=== PATIENT | male | born 1950 | race Caucasian/White ===

== ENCOUNTER 2019-07-13 12:20 | Emergency (ER) | payer OTHER, MEDICARE ==
[2019-07-13 13:06] LABS: #Basophils 0.1 thou/uL (0.0-0.2); #Eosinphils 0.1 thou/uL (0.0-0.7); #Lymphocytes 1.9 thou/uL (1.20-3.40); #Monocytes 0.8 thou/uL (0.11-0.59); #Neutrophils 7.5 thou/uL (1.40-6.50); %Basophils 0.6 % (0.0-1.0); %Eosinophils 0.6 % (0.0-10.0); %Lymphocytes 18.2 % (21.0-51.0); %Monocytes 7.3 % (0.0-10.0); %Neutrophils 73.3 % (42.0-75.0); Mean Corpuscular HGB CONC 33.3 g/dL (32.0-36.0); Mean Corpuscular Hemoglobin 32.3 pg (27.0-31.0); Mean Corpuscular Volume 96.9 fL (78.0-98.0); Mean Platelet Volume 6.6 fL (7.4-10.4); Platelet Count 228 thou/uL (130-400); RBC Distribution Width 12.4 % (11.5-14.5); Red Blood Cell (RBC) Count 4.33 mill/uL (4.70-6.10); White Blood Cell (WBC) Count 10.3 thou/uL (4.8-10.8)
[2019-07-13 13:28] LABS: ALT (SGPT) 11 U/L (8-55); AST (SGOT) 13 U/L (5-34); Albumin 4.1 g/dL (3.4-4.8); Alkaline Phosphatase 76 U/L (40-110); Anion Gap 10 mmol/L (10-20); BUN (Urea Nitrogen) 10 mg/dL (8.4-25.7); Bilirubin, Total 0.3 mg/dL (0.2-1.2); Calc. Creatinine Clearance 0 mL/min (70-130); Calcium 8.5 mg/dL (7.8-10.44); Carbon Dioxide 26 mmol/L (23-31); Chloride 100 mmol/L (98-107); Estimated GFR-MDRD 89; Globulin 2.6 g/dL (2.4-3.5); Glucose 106 mg/dL (80-115); Protein, Total 6.7 g/dL (5.8-8.1); Sodium 132 mmol/L (136-145)
--- NOTE | 2019-07-13 15:20 | CT ---
EXAM: CT ABDOMEN AND PELVIS HISTORY: Abdominal pain x1 month. 30 pound weight loss COMPARISON: None. Procedure: Multiple contiguous axial images were obtained and a CT of the abdomen and pelvis with IV contrast. C oronal reformats were performed. FINDINGS: Lower Chest: Small right-sided pleural effusion. Adjacent interstitial opacities and tree-in-bud opac ities may represent atypical infection superimposed upon chronic change. Linear opacities in the left lung base are noted. 1.7 cm bleb. Trace left-sided pleural effusion. Vessels: Normal caliber aorta. No periaortic fat stranding. Atherosclerosis is identified with short segment mild narrowing. Heart: Upper normal heart size. No significant pericardial fluid. Abdomen: Portal vein:Patent Gallbladder: No calcified gallstones. Normal caliber wall. Liver: within normal limits. Pancreas: within normal limits. Spleen: within normal limits. Adrenals: within normal limits. Kidneys: Symmetric enhancement. No obstructive uropathy. Peritoneum: No ascites or free air, no fluid collection. Bowel: Limited evaluation due to the lack of oral contrast administration. No evidence of high-grade small bowel obstruction. There is some fecalization of small bowel loops in a right inguinal hernia without associated diameter change. Significance is uncertain. A partial obstructive process cannot b e excluded. Ileocecal junction is unremarkable. Normal caliber appendix. Scattered fecal material in a nondistended, nondilated colon. Left inguinal hernia contains segment of descending colon and si gmoid colon without associated obstruction. Extensive diverticulosis throughout the left hemicolon. No diverticulitis. Mesentery and Retroperitoneum: No enlarged mesenteric or retroperitoneal lymph nodes. Abdominal Wall: within normal limits. Pelvis: Reproductive Organs: Reproductive organs are unremarkable. Pelvis: No mass, lymphadenopathy, free air or free fluid. Bilateral inguinal hernia containing mesent ashwin fat. There are segments of small bowel in the right inguinal region with fecalization. Partial obstructive process without associated dilatation is suspected. There is a segment of descending colo n and sigmoid colon in the left inguinal hernia without evidence of obstruction. Extensive diverticulosis. Bladder: within normal limits. Bones: within normal limits. IMPRESSION: 1. Bilateral inguinal hernias. Possible partial obstruction as suggested by fecalization of small bow el loops in the right inguinal hernia. Consider general surgical consultation. Left inguinal hernia contains colon, without evidence of obstruction. 2. Extensive diverticulosis. No evidence of diverticulitis. 3. Atypical infection the right lung base with adjacent small effusion.
[2019-07-13 16:56] LABS: Bilirubin Negative (Negative); Blood, Urine Negative (Negative); Clarity Clear (Clear); Glucose, Urine (Dipstick) Normal (Negative); Leukocyte Negative Leu/uL (Negative); Nitrite Negative (Negative); Protein, Urine (Dipstick) Negative (Neg-Trace); Urobilinogen Normal mg/dL (Less than 2)
== END 2019-07-13 17:35 | disposition home or self-care (01) ==
LOC: ERS 12:20
DX: K40.20 Bilateral inguinal hernia, without obstruction or gangrene, not specified as recurrent (principal); F17.210 Nicotine dependence, cigarettes, uncomplicated
CPT/HCPCS: 36415; 74177; 80053; 81003; 83690; 85025

== ENCOUNTER 2019-08-02 09:40 | Inpatient (IN) | payer OTHER, MEDICARE ==
[2019-08-02 10:08] LABS: #Basophils 0.1 thou/uL (0.0-0.2); #Eosinphils 0.2 thou/uL (0.0-0.7); #Lymphocytes 2.4 thou/uL (1.20-3.40); #Monocytes 0.8 thou/uL (0.11-0.59); #Neutrophils 7.7 thou/uL (1.40-6.50); %Basophils 0.8 % (0.0-1.0); %Eosinophils 1.7 % (0.0-10.0); %Lymphocytes 21.7 % (21.0-51.0); %Monocytes 7.1 % (0.0-10.0); %Neutrophils 68.7 % (42.0-75.0); Hemoglobin 13.6 g/dL (14.0-18.0); Mean Corpuscular HGB CONC 32.2 g/dL (32.0-36.0); Mean Corpuscular Hemoglobin 31.2 pg (27.0-31.0); Mean Corpuscular Volume 97.1 fL (78.0-98.0); Mean Platelet Volume 6.6 fL (7.4-10.4); Platelet Count 182 thou/uL (130-400); RBC Distribution Width 13.2 % (11.5-14.5); Red Blood Cell (RBC) Count 4.36 mill/uL (4.70-6.10); White Blood Cell (WBC) Count 11.2 thou/uL (4.8-10.8)
[2019-08-02] MEDS ORDERED: Nitroglycerin 2% Ointment 1 INCH/1 GM Packet ONE (10:11)
[2019-08-02] MEDS ORDERED: Aspirin Chewable 81 MG TAB ONE (10:11)
[2019-08-02 10:22] LABS: CKMB 4.8 ng/mL (0-6.6)
--- NOTE | 2019-08-02 10:27 | RAD ---
Exam: Chest one view HISTORY:Pain Comparison: 08/07/2011 FINDINGS: Lungs: Bibasilar densities are present with alveolar and interstitial prominence Cardiac silhouette:Enlarged Pulmonary vessels: Engorged Pleural Spaces: Bilateral pleural effusions are present, more pronounced on the right, mild in volume Pneumothorax: None Osseous abnormalities: None of acuity. IMPRESSION: Findings indicate bilateral pleural fluid with superimposed, adjacent edema, atelectasis and/or pneum onia. Correlate for evidence of decompensated CHF. Follow-up to resolution is recommended.
[2019-08-02] MEDS ORDERED: Iopamidol 370 76% 100 ML VIAL ONE (12:00)
[2019-08-02 12:32] LABS: ALT (SGPT) 35 U/L (8-55); AST (SGOT) 29 U/L (5-34); Alkaline Phosphatase 81 U/L (40-110); Anion Gap 15 mmol/L (10-20); BUN (Urea Nitrogen) 11 mg/dL (8.4-25.7); Bilirubin, Total 0.6 mg/dL (0.2-1.2); Calc. Creatinine Clearance 0 mL/min (70-130); Calcium 9.2 mg/dL (7.8-10.44); Carbon Dioxide 25 mmol/L (23-31); Chloride 104 mmol/L (98-107); Estimated GFR-MDRD 72; Globulin 2.5 g/dL (2.4-3.5); Glucose 145 mg/dL (80-115); Potassium 4.6 mmol/L (3.5-5.1); Protein, Total 6.5 g/dL (5.8-8.1); Sodium 139 mmol/L (136-145)
[2019-08-02] MEDS ORDERED: Enoxaparin Sodium 80 MG/0.8 ML SYRINGE ONE (12:43)
[2019-08-02] MEDS ORDERED: Furosemide 40 MG/4 ML VIAL ONE (12:43)
[2019-08-02 13:31] LABS: Troponin I 0.086 ng/mL (< 0.028)
[2019-08-02] MEDS ORDERED: Ondansetron ODT 4 MG TAB SL PRN (14:19)
[2019-08-02] MEDS ORDERED: Ondansetron PF 4 MG/2 ML Vial IVP PRN (14:19)
[2019-08-02] MEDS ORDERED: Acetaminophen 325 MG TAB PO PRN (16:53)
[2019-08-02 16:55] LABS: Troponin I 0.104 ng/mL (< 0.028)
[2019-08-02] MEDS: Nicotine 14 MG PATCH TD SCH (17:32)
--- NOTE | 2019-08-02 18:14 | HP ---
PRIMARY CARE PROVIDER: Dr. Rolly Andrew at [facility]. CHIEF COMPLAINT: Shortness of breath. HISTORY OF PRESENT ILLNESS: Mr. Bailey is a pleasant 68-year-old gentleman, who was seen at [facility] on August 02, 2019. He reports that he had myocardial infarction in 1995. He did not receive any intervention for that. He is a current smoker. He reports that he had decreased appetite several weeks ago. He had unintentional weight loss, going from 191 to 167 pounds over 2.5 weeks. He subsequently started gaining weight. He reports that over the last 1 week, he went from 167 pounds to 180 pounds. He also reports difficulty breathing over the last 6 days. He was seen at urgent care clinic. Chest x-ray reportedly showed enlarged heart and fluid in the lungs as well as pneumonia. He was treated with antibiotics, but does not recall the name. Three days ago, he went to his clinic. He was waiting for the records to be transferred from urgent care clinic. He also reports lower extremity swelling over the last 1 week, bilaterally. Today, he started having chest pain with deep breath. He reports it as initially on the right side of the chest, then retrosternal, sharp, 5/10 at its worst, nonradiating. He denies any orthopnea or paroxysmal nocturnal dyspnea. He denies any calf pain. He denies any recent long distance travel. REVIEW OF SYSTEMS: All systems were reviewed and found to be negative, except for pertinent positives mentioned above. PAST MEDICAL HISTORY: Bilateral inguinal hernia, dyslipidemia, myocardial infarction. PAST SURGICAL HISTORY: None. SOCIAL HISTORY: The patient drinks on Fridays. He smokes 7 to 8 cigarettes a day. He denies recreational drug use. FAMILY HISTORY: Significant for pancreatic cancer in his father and paternal grandfather. CODE STATUS: I discussed his code status. He is full code. ALLERGIES: NO KNOWN DRUG ALLERGIES. CURRENT MEDICATIONS: Cefdinir 300 mg 2 times a day, vitamin D3, and naproxen. PHYSICAL EXAMINATION: GENERAL: On examination, Mr. Bailey is awake and alert, not in acute distress. VITAL SIGNS: Blood pressure is 119/60, pulse is 78, respiratory rate is 16, and oxygen saturation is 98% on room air. He is afebrile. EYES: No scleral icterus. No conjunctival pallor. ENT: Moist mucosal membranes. No oropharyngeal erythema or exudates. NECK: Supple, nontender. Trachea midline. He has jugular venous distention. RESPIRATORY: Accessory muscles of breathing are not active. Chest wall movements are symmetric bilaterally. LUNGS: Reveals bibasilar crackles. CARDIOVASCULAR: S1 and S2 are heard, regular. Peripheral pulses palpable. No carotid bruit. No pericardial rub. ABDOMEN: Soft, nontender. Bowel sounds heard. NEUROLOGIC: Cranial nerves 2 through 12 are intact. MUSCULOSKELETAL: Power is 5/5 in all 4 extremities. SKIN: No rashes or subcutaneous nodules. The patient has trace bilateral lower extremity edema. LYMPHATIC: No cervical lymphadenopathy. PSYCHIATRIC: Normal mood. Normal affect. The patient is oriented to person, place, and time. LABORATORY DATA: Mr. Bailey's labs and investigations were reviewed. IMAGING STUDIES: I reviewed his electrocardiogram, which shows normal sinus rhythm, no ST changes to suggest an acute coronary syndrome. He has occasional premature ventricular complexes. I also reviewed his chest x-ray, which does not show any pulmonary infiltrates. He has bilateral pleural effusions and cardiomegaly. He has leukocytosis with 11,200 white cells, of which 68.7% are neutrophils. He has normocytic anemia with hemoglobin 13.6, normal platelet count, unremarkable comprehensive metabolic profile, indeterminate troponin-I of 0.086, trending down from 0.110 earlier and elevated BNP of 2311. Lipase is normal at 12. ASSESSMENT AND PLAN: Mr. Bailey is a pleasant 68-year-old gentleman, who was seen at [facility] on August 02, 2019. His problem list includes: 1. Shortness of breath: Mr. Bailey is presenting with shortness of breath, most likely secondary to congestive heart failure exacerbation. However, given his history of pleuritic chest pain, he will also need to be ruled out for pulmonary embolism. I will order CT angiogram of the chest and start him on diuretics for congestive heart failure exacerbation. 2. Congestive heart failure exacerbation: We will start him on furosemide 40 mg IV twice daily. We will consult Cardiology Service for new onset congestive heart failure. We will check 2D echocardiogram. We will consult cardiac rehab. 3. Elevated troponin: Most likely secondary to congestive heart failure. However, given his history of chest pain, we will monitor on telemetry and recheck troponin level. 4. Tobacco abuse: The patient has been counseled regarding tobacco cessation. We will start nicotine replacement therapy. Many thanks for allowing me to participate in your patient's care. Please feel free to contact me with any questions or concerns. LEVEL OF RISK: High. LEVEL OF COMPLEXITY: High. Job ID: [id number]
--- NOTE | 2019-08-02 21:14 | CT ---
CTA Angio Chest W WO Con HISTORY: Chest pain pleuritic and shortness of breath. COMPARISON: Chest x-ray done earlier today. FINDINGS: There are moderate bilateral pleural effusions right larger than left with subsegmental ate lectatic lung changes seen. No confluent infiltrates. No pulmonary nodules are identified. Some changes of emphysema are noted. The thoracic aorta appears normal in caliber. There is some mild mediastinal lymphadenopathy these no nicol may be reactive in nature they do not appear pathologically enlarged. Coronary calcifications are present. There is good pulmonary artery opacification obtained with no CT evidence for pulmonary embolus. Visualized liver parenchyma shows no focal findings. IMPRESSION: 1. Moderate bilateral pleural effusions right larger than left with bibasilar atelectasis. 2. No CT evidence for pulmonary embolus.
[2019-08-02] MEDS: Cefdinir 300 MG CAP PO SCH (21:41)
[2019-08-03 04:54] LABS: #Basophils 0.1 thou/uL (0.0-0.2); #Eosinphils 0.1 thou/uL (0.0-0.7); #Lymphocytes 2.3 thou/uL (1.20-3.40); #Monocytes 1.2 thou/uL (0.11-0.59); #Neutrophils 6.9 thou/uL (1.40-6.50); %Basophils 0.6 % (0.0-1.0); %Eosinophils 0.9 % (0.0-10.0); %Lymphocytes 21.6 % (21.0-51.0); %Monocytes 11.7 % (0.0-10.0); %Neutrophils 65.2 % (42.0-75.0); Hemoglobin 11.8 g/dL (14.0-18.0); Mean Corpuscular HGB CONC 33.1 g/dL (32.0-36.0); Mean Corpuscular Hemoglobin 31.8 pg (27.0-31.0); Mean Corpuscular Volume 96.2 fL (78.0-98.0); Mean Platelet Volume 6.9 fL (7.4-10.4); Platelet Count 164 thou/uL (130-400); RBC Distribution Width 13.2 % (11.5-14.5); White Blood Cell (WBC) Count 10.6 thou/uL (4.8-10.8)
[2019-08-03 05:11] LABS: Anion Gap 10 mmol/L (10-20); BUN (Urea Nitrogen) 12 mg/dL (8.4-25.7); Calc. Creatinine Clearance 93 mL/min (70-130); Calcium 8.5 mg/dL (7.8-10.44); Carbon Dioxide 26 mmol/L (23-31); Cardiac Risk 3.1 (Less than 4.5); Chloride 103 mmol/L (98-107); Cholesterol 99 mg/dl (< 200 Desired); Estimated GFR-MDRD 84; Glucose 99 mg/dL (80-115); HDL Cholesterol 32 mg/dL (>60 Neg Risk); LDL Cholesterol, Calculated 51 mg/dL; Potassium 4.1 mmol/L (3.5-5.1); Sodium 135 mmol/L (136-145); Triglycerides 78 mg/dL (Less than 150)
[2019-08-03] MEDS: Furosemide 40 MG/4 ML VIAL SLOW IVP SCH ×2 (06:40→13:37)
[2019-08-03] MEDS ORDERED: Enoxaparin Sodium 40 MG/0.4 ML SYRINGE SC SCH (09:00)
[2019-08-03] MEDS ORDERED: FLU VACC TS2019-20(65YR UP)/PF 180 MCG/0.5 ML SYRINGE IM ONE (09:00)
[2019-08-03] MEDS: Cefdinir 300 MG CAP PO SCH ×2 (09:36→20:41)
--- NOTE | 2019-08-03 13:38 | PDOC.HOSPP ---
- Subjective Encounter Date: 08/03/19 Encounter Time: 08:00 Subjective: Pt seen for followup re: CHF exacerbation. Feels better. - Objective Vital Signs & Weight: Vital Signs (12 hours) Temp Pulse Resp BP Pulse Ox 08/03/19 08:26 97.8 F 70 22 H 128/62 92 L 08/03/19 03:15 99 F 67 16 108/58 L 94 L Weight Weight 176 lb 3 oz I&O: 08/02/19 08/03/19 08/04/19 06:59 06:59 06:59 Intake Total 50 Output Total 1000 Balance -950 Result Diagrams: 08/03/19 04:33 08/03/19 04:33 Additional Labs: labs and MARs reviewed by me EKG Reviewed by me: Yes (Tele; NSR) Hospitalist ROS - Review of Systems Respiratory: reports: SOB with excertion. denies: cough, shortness of breath, pleuritic pain, wheezing Cardiovascular: reports: edema. denies: chest pain, palpitations, orthopnea, paroxysmal noc. dyspnea, light headedness - Medication Medications: Active Medications Generic Name Dose Route Start Last Admin Trade Name Freq PRN Reason Stop Dose Admin Cefdinir 300 mg 08/02/19 21:00 08/03/19 09:36 Omnicef PO 300 mg BID SCOTTY Administration Enoxaparin Sodium 40 mg 08/03/19 09:00 08/03/19 09:36 Lovenox SC 40 mg 0900 SCOTTY Administration Furosemide 40 mg 08/03/19 06:00 08/03/19 06:40 Lasix SLOW IVP 40 mg 0600,1400 SCOTTY Administration Nicotine 14 mg 08/02/19 17:00 08/02/19 17:32 Nicoderm Patch TD Not Given Q24HR SCOTTY - Exam General Appearance: NAD, awake alert Eye: anicteric sclera ENT: normocephalic atraumatic, no oropharyngeal lesions Neck: no thyromegaly, JVD Heart: RRR, no rubs Respiratory - other findings: Bibasal crackles Gastrointestinal: soft, non-tender Extremities: 1+ LE edema Neurological: no weakness Musculoskeletal: no muscle wasting Psychiatric: normal affect, normal behavior Hosp A/P (1) CHF exacerbation Code(s): I50.9 - HEART FAILURE, UNSPECIFIED Status: Acute (2) Hyponatremia Code(s): E87.1 - HYPO-OSMOLALITY AND HYPONATREMIA Status: Acute (3) Dyslipidemia Code(s): E78.5 - HYPERLIPIDEMIA, UNSPECIFIED Status: Chronic - Plan out of bed/ambulate Continue IV furosemide. Await 2D echo, cardiology consult. Continue Lipitor.
[2019-08-03] MEDS ORDERED: Communication Order-Pharmacy FS SCH (16:30)
--- NOTE | 2019-08-03 16:52 | CON ---
DATE OF CONSULTATION: REASON FOR CONSULTATION: Chest pain and cardiomyopathy. HISTORY OF PRESENT ILLNESS: Mr. Bailey is a 68-year-old gentleman, who has now been seen and evaluated by Cardiology in the past. He has a history of myocardial infarction in 1995. He has not followed up with Cardiology since that time. He states recently he was diagnosed with pneumonia and placed on antibiotic therapy. There was concern for a cardiomyopathy. [facility] He then presented with chest pain over the weekend. Given the above, it was decided to admit Mr. Bailey for further disposition. Mr. Bailey's recent echo did suggest LVEF less than 35%. PAST MEDICAL HISTORY: Hernia repair, hyperlipidemia, previous MS. SOCIAL HISTORY: Positive tobacco use. FAMILY HISTORY: Negative for CAD. HOME MEDICATIONS: Include; 1. Cefdinir. 2. Vitamin D3. 3. Naproxen. REVIEW OF SYSTEMS: A 10-point review of systems is reviewed as above, otherwise negative. PHYSICAL EXAMINATION: GENERAL: Patient is a pleasant gentleman, who is in no acute distress. He does appear older than stated age. VITAL SIGNS: Blood pressure 112/59, pulse 75, respirations 20. NEUROLOGIC: The patient is alert and oriented x3 with no focal neurologic deficits. HEENT: Sclerae without icterus. Mouth has moist mucous membranes with normal pallor. NECK: No JVD. Carotid upstroke brisk. No bruits bilaterally. LUNGS: Clear to auscultation with unlabored respirations. BACK: No scoliosis or kyphosis. CARDIAC: Regular rate and rhythm with normal S1 and S2. No S3 or S4 noted. No significant rubs, murmurs, thrills, or gallops noted throughout the precordium. PMI is not displaced. There is no parasternal heave. ABDOMEN: Soft, nontender, nondistended. No peritoneal signs present. No hepatosplenomegaly. No abnormal striae. EXTREMITIES: 2+ femoral and 2+ dorsalis pedis pulses. No cyanosis, clubbing, or edema. SKIN: No gross abnormalities. PERTINENT LABORATORY DATA: Hemoglobin 11.8. Creatinine 0.9. Peak troponin 0.086. BNP 2311. IMPRESSION: 1. New onset cardiomyopathy. 2. Chest pain. 3. Tobacco abuse. 4. Previous history of MS. RECOMMENDATIONS: Mr. Bailey is felt to be high risk for underlying coronary artery disease given the above. Discussed medical therapy versus stress study versus angiography. I have discussed and decided to proceed with coronary angiography. Discussed in full detail with Mr. Bailey. Risks included, not limited to the following: I discussed the procedure in full detail with the patient. The risks of the procedure were also discussed. The risks of the procedure include but are not limited to the following: , stroke, MS, need for emergency surgery, loss of limb, bleeding, and infection, as well as a reaction to the dye causing kidney failure and needing long-term dialysis. I also discussed the risks of PCI to include all of the above including coronary dissection and perforation in addition to acute stent thrombosis and restenosis. All questions about the procedure were answered. Given the above, the patient agreed to proceed with coronary angiography and possible PCI. All questions were answered. Given the above, the patient agreed to proceed with the above procedure. I also discussed drug coated versus nondrug coated stent placement. There were no complications. We will proceed if needed. Job ID: [id number]
[2019-08-03] MEDS: Nicotine 14 MG PATCH TD SCH (17:02)
[2019-08-03] MEDS: Metoprolol Tartrate 25 MG TAB PO SCH (20:41)
[2019-08-03] MEDS: Atorvastatin Calcium 40 MG TAB PO SCH (20:41)
[2019-08-04 05:11] LABS: #Basophils 0.1 thou/uL (0.0-0.2); #Eosinphils 0.2 thou/uL (0.0-0.7); #Neutrophils 6.1 thou/uL (1.40-6.50); %Basophils 0.7 % (0.0-1.0); %Eosinophils 2.4 % (0.0-10.0); %Monocytes 10.9 % (0.0-10.0); Hemoglobin 11.7 g/dL (14.0-18.0); Mean Corpuscular HGB CONC 31.4 g/dL (32.0-36.0); Mean Corpuscular Hemoglobin 30.4 pg (27.0-31.0); Mean Corpuscular Volume 96.5 fL (78.0-98.0); Mean Platelet Volume 6.6 fL (7.4-10.4); Platelet Count 155 thou/uL (130-400); RBC Distribution Width 13.1 % (11.5-14.5); Red Blood Cell (RBC) Count 3.87 mill/uL (4.70-6.10); White Blood Cell (WBC) Count 9.3 thou/uL (4.8-10.8)
[2019-08-04 05:32] LABS: Anion Gap 12 mmol/L (10-20); BUN (Urea Nitrogen) 13 mg/dL (8.4-25.7); Calc. Creatinine Clearance 91 mL/min (70-130); Calcium 8.3 mg/dL (7.8-10.44); Carbon Dioxide 26 mmol/L (23-31); Chloride 101 mmol/L (98-107); Estimated GFR-MDRD 84; Glucose 97 mg/dL (80-115); Potassium 4.2 mmol/L (3.5-5.1); Sodium 135 mmol/L (136-145)
[2019-08-04] MEDS: Sodium Chloride 0.9% 1,000 ML IV SCH ×2 (06:37→16:46)
[2019-08-04] MEDS: Furosemide 40 MG/4 ML VIAL SLOW IVP SCH ×2 (08:59→13:07)
[2019-08-04] MEDS: Cefdinir 300 MG CAP PO SCH ×2 (13:06→21:47)
[2019-08-04] MEDS: Metoprolol Tartrate 25 MG TAB PO SCH ×2 (13:07→21:47)
[2019-08-04] MEDS: Aspirin 81 mg Enteric Coated Tablet PO SCH (13:07)
--- NOTE | 2019-08-04 14:18 | PDOC.HOSPP ---
- Subjective Encounter Date: 08/04/19 Encounter Time: 08:20 Subjective: Pt seen for followup re: CHF. Says he feels ok, no complaints. - Objective Vital Signs & Weight: Vital Signs (12 hours) Temp Pulse Resp BP Pulse Ox 08/04/19 12:00 97.6 F 65 18 138/79 93 L 08/04/19 07:23 98.7 F 65 16 115/71 96 08/04/19 04:00 98.2 F 57 L 19 115/69 98 Weight Admit Weight 179 lb 3 oz Weight 173 lb 2 oz I&O: 08/03/19 08/04/19 08/05/19 06:59 06:59 06:59 Intake Total 50 1200 Output Total 1000 3050 Balance -950 -1850 Result Diagrams: 08/04/19 05:00 08/04/19 05:00 Additional Labs: Labs and MARs reviewed by me EKG Reviewed by me: Yes (Tele; NSR) Hospitalist ROS - Review of Systems Cardiovascular: denies: chest pain, palpitations, orthopnea, paroxysmal noc. dyspnea, edema, light headedness Gastrointestinal: denies: nausea, vomiting, abdominal pain, diarrhea, constipation, melena, hematochezia - Medication Medications: Active Medications Generic Name Dose Route Start Last Admin Trade Name Freq PRN Reason Stop Dose Admin Aspirin 81 mg 08/04/19 09:00 08/04/19 13:07 Ecotrin PO 81 mg DAILY SCOTTY Administration Atorvastatin Calcium 40 mg 08/03/19 21:00 08/03/19 20:41 Lipitor PO 40 mg HS SCOTTY Administration Cefdinir 300 mg 08/02/19 21:00 08/04/19 13:06 Omnicef PO 300 mg BID SCOTTY Administration Furosemide 40 mg 08/03/19 06:00 08/04/19 13:07 Lasix SLOW IVP 40 mg 0600,1400 SCOTYT Administration Sodium Chloride 1,000 mls @ 100 mls/hr 08/04/19 06:00 08/04/19 06:37 Normal Saline 0.9% IV 1,000 mls .Q10H SCOTTY Administration Metoprolol Tartrate 12.5 mg 08/03/19 21:00 08/04/19 13:07 Lopressor PO 12.5 mg BID SCOTTY Administration Nicotine 14 mg 08/02/19 17:00 08/03/19 17:02 Nicoderm Patch TD Not Given Q24HR SCOTTY - Exam General Appearance: NAD Eye: anicteric sclera ENT: moist mucosa Neck: supple, no JVD Heart: RRR Respiratory: CTAB Gastrointestinal: soft, non-tender Extremities: 1+ LE edema Psychiatric: normal affect, normal behavior Hosp A/P (1) CHF exacerbation Code(s): I50.9 - HEART FAILURE, UNSPECIFIED Status: Acute Qualifiers: Heart failure type: systolic Qualified Code(s): I50.23 - Acute on chronic systolic (congestive) heart failure Plan: NYHA Class 3 (2) Hyponatremia Code(s): E87.1 - HYPO-OSMOLALITY AND HYPONATREMIA Status: Acute (3) Dyslipidemia Code(s): E78.5 - HYPERLIPIDEMIA, UNSPECIFIED Status: Chronic (4) Tobacco abuse Code(s): Z72.0 - TOBACCO USE Status: Chronic - Plan out of bed/ambulate Continue IV furosemide. s/p cath, await report. Continue Lipitor.
--- NOTE | 2019-08-04 14:35 | CON ---
DATE OF CONSULTATION: HISTORY OF PRESENT ILLNESS: This is a 68-year-old gentleman, admitted through the emergency room with a story of progressive lower extremity edema, dyspnea on exertion and then cough and chest pain. He was treated with outpatient antibiotics for suspected pneumonia and then was admitted here with a bump in his troponin and evidence of congestive heart failure with bilateral pleural effusions. PAST MEDICAL HISTORY: Includes some sort of cardiac event in 1995, but denies hypertension. He admits to elevated cholesterol level, but is not on any medications for this. PAST SURGICAL HISTORY: Includes oral surgery following a mandibular fracture many years ago. SOCIAL HISTORY: The patient works as a auto machinist. He smokes at least a pack of cigarettes a day. He has no immediate family available, although does have a son and ex-, that he has as point of contact. REVIEW OF SYSTEMS: The patient cannot walk very far due to getting tired and having pain in his knees and claudication in his lower legs. He admits to nocturia x2. He admits to dyspnea on exertion. MEDICATIONS: He was on some oral antibiotics, otherwise no medicines. PHYSICAL EXAMINATION: GENERAL: Today, he is unkept appearing gentleman with rather filthy hands. He has a long zafar and drapes over his chest. NECK: Without carotid bruits. LUNGS: No wheezes at this time. CARDIAC: Ectopic beats with a systolic murmur toward the left apex. I do not appreciate a right upper sternal border murmur. ABDOMEN: Mildly obese, nontender. No aneurysm. EXTREMITIES: He has palpable femoral pulses on the left and has a dressing on the right groin. He has 1+ peripheral edema. No palpable pulses distally. DIAGNOSTIC STUDIES: Cardiac catheterization was reviewed and shows ostial right coronary lesion with a diffusely diseased and calcified right coronary system, partly filling from [id number] collaterals with only bypassable target being possibly a distal posterolateral. His left main has a distal 60% to 70% stenosis and the circumflex is completely occluded after a smallish obtuse marginal 1, which has about an 80% stenosis. He has 2 large diagonals with mild disease. Cardiac echo shows an EF of 25% with [id number] mitral regurgitation and no significant aortic valvular disease. Cardiac cath per Dr. Cordova showed aortic valve area of 0.7. ASSESSMENT: The patient presents as a significant surgical risk and we will discuss with Dr. Cordova and we think the mitral valve should be handled. If the patient needs aortic and mitral as well as coronary artery bypass grafting, I will suggest that he be sent to [facility]. Job ID: [id number]
[2019-08-04] MEDS ORDERED: Iopamidol 370 76% 100 ML VIAL ONE (15:03)
[2019-08-04] MEDS ORDERED: Acetaminophen/Codeine 30-300mg Tablet PO PRN ×2 (15:11)
[2019-08-04] MEDS ORDERED: Sodium Chloride 0.9% 200 ML IV PRN (15:11)
[2019-08-04] MEDS ORDERED: Nitroglycerin 0.4 MG TAB (25 Tab Bottle) SL PRN (15:11)
[2019-08-04] MEDS: Nicotine 14 MG PATCH TD SCH (19:36)
[2019-08-04] MEDS: Atorvastatin Calcium 40 MG TAB PO SCH (21:47)
[2019-08-05 05:15] LABS: #Eosinphils 0.4 thou/uL (0.0-0.7); #Lymphocytes 1.9 thou/uL (1.20-3.40); #Monocytes 0.7 thou/uL (0.11-0.59); #Neutrophils 5.2 thou/uL (1.40-6.50); %Basophils 0.6 % (0.0-1.0); %Eosinophils 4.4 % (0.0-10.0); %Lymphocytes 23.3 % (21.0-51.0); %Monocytes 8.4 % (0.0-10.0); %Neutrophils 63.4 % (42.0-75.0); Hemoglobin 12.4 g/dL (14.0-18.0); Mean Corpuscular HGB CONC 32.5 g/dL (32.0-36.0); Mean Corpuscular Hemoglobin 31.3 pg (27.0-31.0); Mean Corpuscular Volume 96.4 fL (78.0-98.0); Mean Platelet Volume 6.8 fL (7.4-10.4); Platelet Count 157 thou/uL (130-400); RBC Distribution Width 13.1 % (11.5-14.5); Red Blood Cell (RBC) Count 3.96 mill/uL (4.70-6.10); White Blood Cell (WBC) Count 8.2 thou/uL (4.8-10.8)
[2019-08-05 05:37] LABS: Anion Gap 12 mmol/L (10-20); BUN (Urea Nitrogen) 10 mg/dL (8.4-25.7); Calc. Creatinine Clearance 94 mL/min (70-130); Calcium 8.5 mg/dL (7.8-10.44); Carbon Dioxide 27 mmol/L (23-31); Chloride 101 mmol/L (98-107); Estimated GFR-MDRD 89; Glucose 93 mg/dL (80-115); Potassium 4.5 mmol/L (3.5-5.1); Sodium 135 mmol/L (136-145)
[2019-08-05] MEDS: Furosemide 40 MG/4 ML VIAL SLOW IVP SCH ×2 (05:50→13:50)
[2019-08-05] MEDS: Cefdinir 300 MG CAP PO SCH ×2 (09:22→20:15)
[2019-08-05] MEDS: Metoprolol Tartrate 25 MG TAB PO SCH ×2 (09:22→20:15)
[2019-08-05] MEDS: Aspirin 81 mg Enteric Coated Tablet PO SCH (09:22)
--- NOTE | 2019-08-05 14:18 | PDOC.HOSPP ---
- Subjective Encounter Date: 08/05/19 Encounter Time: 08:20 Subjective: Pt seen for followup re: CHF exacerbation. feels better. - Objective Vital Signs & Weight: Vital Signs (12 hours) Temp Pulse Pulse Pulse Resp BP BP 08/05/19 13:23 70 75 108/56 L 114/59 L 08/05/19 12:00 97.7 F 69 18 08/05/19 09:10 97.8 F 69 17 08/05/19 04:00 98.4 F 60 23 H BP Pulse Ox Pulse Ox Pulse Ox 08/05/19 13:23 95 98 08/05/19 12:00 124/65 97 08/05/19 09:10 111/57 L 96 08/05/19 04:00 119/63 95 Weight Admit Weight 179 lb 3 oz Weight 168 lb 1 oz I&O: 08/04/19 08/05/19 08/06/19 06:59 06:59 06:59 Intake Total 1350 1380 Output Total 3850 3120 1000 Balance -2500 -1745 -1000 Result Diagrams: 08/05/19 04:52 08/05/19 04:52 Additional Labs: Labs and MARs reviewed by me EKG Reviewed by me: Yes (Tele; NSR) Hospitalist ROS - Review of Systems Cardiovascular: denies: chest pain, palpitations, orthopnea, paroxysmal noc. dyspnea, edema, light headedness Gastrointestinal: denies: nausea, vomiting, abdominal pain, diarrhea, constipation, melena, hematochezia - Medication Medications: Active Medications Generic Name Dose Route Start Last Admin Trade Name Freq PRN Reason Stop Dose Admin Aspirin 81 mg 08/04/19 09:00 08/05/19 09:22 Ecotrin PO 81 mg DAILY SCOTTY Administration Atorvastatin Calcium 40 mg 08/03/19 21:00 08/04/19 21:47 Lipitor PO 40 mg HS SCOTTY Administration Cefdinir 300 mg 08/02/19 21:00 08/05/19 09:22 Omnicef PO 300 mg BID SCOTTY Administration Furosemide 40 mg 08/03/19 06:00 08/05/19 13:50 Lasix SLOW IVP 40 mg 0600,1400 SCOTTY Administration Metoprolol Tartrate 12.5 mg 08/03/19 21:00 08/05/19 09:22 Lopressor PO 12.5 mg BID SCOTTY Administration Nicotine 14 mg 08/02/19 17:00 08/04/19 19:36 Nicoderm Patch TD Not Given Q24HR SCOTTY - Exam General Appearance: NAD Eye: anicteric sclera ENT: moist mucosa Neck: supple Heart: RRR Respiratory: CTAB Gastrointestinal: soft, non-tender Extremities: 1+ LE edema Skin: no rashes Neurological: no weakness Psychiatric: normal affect, normal behavior Hosp A/P (1) CHF exacerbation Code(s): I50.9 - HEART FAILURE, UNSPECIFIED Status: Acute Qualifiers: Heart failure type: systolic Qualified Code(s): I50.23 - Acute on chronic systolic (congestive) heart failure (2) Hyponatremia Code(s): E87.1 - HYPO-OSMOLALITY AND HYPONATREMIA Status: Acute (3) Dyslipidemia Code(s): E78.5 - HYPERLIPIDEMIA, UNSPECIFIED Status: Chronic (4) Tobacco abuse Code(s): Z72.0 - TOBACCO USE Status: Chronic (5) CAD (coronary artery disease) Code(s): I25.10 - ATHSCL HEART DISEASE OF [place] CORONARY ARTERY W/O ANG PCTRS Status: Chronic (6) Aortic stenosis Code(s): I35.0 - NONRHEUMATIC AORTIC (VALVE) STENOSIS Status: Chronic (7) Mitral regurgitation Status: Chronic - Plan Continue furosemide. Awaitng decision re: surgery for CAD and valvular heart disease. Continue Lipitor.
[2019-08-05 14:23] VITALS: BMI 27.1
[2019-08-05] MEDS: Nicotine 14 MG PATCH TD SCH (16:34)
[2019-08-05] MEDS: Atorvastatin Calcium 40 MG TAB PO SCH (20:15)
--- NOTE | 2019-08-05 21:18 | PDOC.CPN ---
- Subjective Date: 08/05/19 Time: 16:00 - Review of Systems General: denies: fever/chills, weight/appetite/sleep changes, night sweats, fatigue Respiratory: denies: cough, congestion, shortness of breath, exercise intolerance Cardiovascular: denies: chest pain, palpitation, edema, paroxysmal nocturnal dyspnea, orthopnea Gastrointestinal: denies: nausea, vomiting, diarrhea, constipation, abd pain, GI bleeding Musculoskeletal: denies: pain, tenderness, stiffness, swelling, arthritis/ arthralgias Neurological: denies: numbness, syncope, seizure, weakness - Objective Allergies/Adverse Reactions: Allergies Allergy/AdvReac Type Severity Reaction Status Date / Time No Known Allergies Allergy Verified 08/02/19 14:44 Visit Medications: Current Medications Acetaminophen (Tylenol) 650 mg PO Q4H PRN PRN Reason: Headache/Fever/Mild Pain (1-3) Acetaminophen/Codeine Phosphate (Tylenol #3) 1 tab PO Q4H PRN PRN Reason: Mild Pain (1-3) Acetaminophen/Codeine Phosphate (Tylenol #3) 2 tab PO Q4H PRN PRN Reason: Moderate Pain (4-6) Aspirin (Ecotrin) 81 mg PO DAILY [facility] Last Admin: 08/05/19 09:22 Dose: 81 mg Atorvastatin Calcium (Lipitor) 40 mg PO HS [facility] Last Admin: 08/05/19 20:15 Dose: 40 mg Cefdinir (Omnicef) 300 mg PO BID [facility] Last Admin: 08/05/19 20:15 Dose: 300 mg Furosemide (Lasix) 40 mg SLOW IVP 0600,1400 [facility] Last Admin: 08/05/19 13:50 Dose: 40 mg Metoprolol Tartrate (Lopressor) 12.5 mg PO BID [facility] Last Admin: 08/05/19 20:15 Dose: 12.5 mg Nicotine (Nicoderm Patch) 14 mg TD Q24HR [facility] Last Admin: 08/05/19 16:34 Dose: Not Given Nitroglycerin (Nitrostat) 0.4 mg SL Q5MIN PRN PRN Reason: Chest Pain Sodium Chloride (Flush - Normal Saline) 10 ml IVF PRN PRN PRN Reason: Saline Flush Last Admin: 08/05/19 20:16 Dose: 10 ml Vital Signs & Weight: Vital Signs Temp Pulse Pulse Pulse Resp BP BP 08/05/19 20:10 98.1 F 67 19 08/05/19 15:36 98.1 F 67 16 08/05/19 13:23 70 75 108/56 L 114/59 L 08/05/19 12:00 97.7 F 69 18 BP Pulse Ox Pulse Ox Pulse Ox 08/05/19 20:10 116/69 93 L 08/05/19 15:36 105/57 L 95 08/05/19 13:23 95 98 08/05/19 12:00 124/65 97 Admit Weight 179 lb 3 oz Weight 168 lb 1 oz - Physical Exam General: alert & oriented x3, appears well HEENT: mucus membranes moist Neck: supple neck Cardiac: regular rate and rhythm, regular rate Lungs: normal breath sounds Neuro: grossly intact Abdomen: active bowel sounds, soft Extremities: no edema Musculoskeletal: normal range of motion - Labs Result Diagrams: 08/05/19 04:52 08/05/19 04:52 Troponin/CKMB CK-MB (CK-2) 4.8 ng/mL (0-6.6) 08/02/19 09:53 Troponin I 0.104 ng/mL (< 0.028) H 08/02/19 16:20 - Assessment/Plan Assessment/Plan: 1. 3VCAD 2. MR 3. Tobacco Abuse Stable. No overnight events. Plan for CABG in near future.
[2019-08-06] MEDS: Furosemide 40 MG/4 ML VIAL SLOW IVP SCH ×2 (06:24→14:57)
[2019-08-06] MEDS: Metoprolol Tartrate 25 MG TAB PO SCH ×2 (08:58→21:07)
[2019-08-06] MEDS: Cefdinir 300 MG CAP PO SCH ×2 (08:58→21:08)
[2019-08-06] MEDS: Aspirin 81 mg Enteric Coated Tablet PO SCH (08:58)
--- NOTE | 2019-08-06 09:00 | PRG ---
DATE OF SERVICE: 08/06/2019 SUBJECTIVE: Mr. Bailey is stable. No current complaints. OBJECTIVE: VITAL SIGNS: Blood pressure 108/60, pulse rate 60, respirations are 20. LUNGS: Clear to auscultation. HEART: Regular rate and rhythm with 2/6 systolic ejection murmur. ABDOMEN: Soft, nontender, and nondistended. EXTREMITIES: No edema. LABORATORY DATA: Hemoglobin 12.4 and hematocrit 38.1. IMPRESSION: 1. Severe left main disease. 2. Ischemic cardiomyopathy. 3. Severe aortic stenosis. RECOMMENDATIONS: Mr. Bailey's cycle progress is bypass with aortic valve replacement. Dr. Mathis has been consulted. We will leave at his disposition. At this point, in preparation for surgery, we will continue aspirin and atorvastatin in addition to metoprolol. Otherwise, I have no further recommendations. Job ID: [id number]
--- NOTE | 2019-08-06 15:18 | PDOC.HOSPP ---
- Subjective Encounter Date: 08/06/19 Encounter Time: 08:20 Subjective: Pt seen for followup re: CHF exacerbation. No complaints, states he feels well. - Objective Vital Signs & Weight: Vital Signs (12 hours) Temp Pulse Pulse Pulse Resp BP BP 08/06/19 11:45 98.0 F 95 16 08/06/19 10:25 71 67 114/56 L 108/63 08/06/19 08:57 98.3 F 67 16 08/06/19 08:00 08/06/19 04:00 98.9 F 60 20 BP Pulse Ox Pulse Ox Pulse Ox 08/06/19 11:45 117/83 99 08/06/19 10:25 96 96 08/06/19 08:57 109/57 L 95 08/06/19 08:00 95 08/06/19 04:00 108/60 92 L Weight Admit Weight 179 lb 3 oz Weight 164 lb 11.2 oz I&O: 08/05/19 08/06/19 08/07/19 06:59 06:59 06:59 Intake Total 1380 720 720 Output Total 6234 7035 1999 [facility]1745 -[id number] -1280 Result Diagrams: 08/05/19 04:52 08/05/19 04:52 Additional Labs: Labs and MARs reviewed by me EKG Reviewed by me: Yes (Tele: NSR) Hospitalist ROS - Review of Systems Cardiovascular: denies: chest pain, palpitations, orthopnea, paroxysmal noc. dyspnea, edema, light headedness Gastrointestinal: denies: nausea, vomiting, abdominal pain, diarrhea, constipation, melena, hematochezia - Medication Medications: Active Medications Generic Name Dose Route Start Last Admin Trade Name Freq PRN Reason Stop Dose Admin Aspirin 81 mg 08/04/19 09:00 08/06/19 08:58 Ecotrin PO 81 mg DAILY SCOTTY Administration Atorvastatin Calcium 40 mg 08/03/19 21:00 08/05/19 20:15 Lipitor PO 40 mg HS [facility]OT[facility] Administration Cefdinir 300 mg 08/02/19 21:00 08/06/19 08:58 Omnicef PO 300 mg BID SCOT[facility] Administration Furosemide 40 mg 08/03/19 06:00 08/06/19 14:57 Lasix SLOW IVP 40 mg 0600,1400 SCOT[facility] Administration Metoprolol Tartrate 12.5 mg 08/03/19 21:00 08/06/19 08:58 Lopressor PO 12.5 mg BID SCOT[facility] Administration Nicotine 14 mg 08/02/19 17:00 08/05/19 16:34 Nicoderm Patch TD Not Given Q24HR SCOTTY Sodium Chloride 10 ml 08/02/19 14:19 08/06/19 06:24 Flush - Normal Saline IVF 10 ml PRN PRN Administration Saline Flush - Exam General Appearance: NAD, awake alert Eye: anicteric sclera ENT: no oropharyngeal lesions Neck: supple, symmetric Heart: RRR, no gallops Respiratory: CTAB Gastrointestinal: soft, non-tender Extremities: no clubbing Neurological: no weakness Psychiatric: normal affect, normal behavior Hosp A/P (1) CHF exacerbation Code(s): I50.9 - HEART FAILURE, UNSPECIFIED Status: Acute Qualifiers: Heart failure type: systolic Qualified Code(s): I50.23 - Acute on chronic systolic (congestive) heart failure (2) Hyponatremia Code(s): E87.1 - HYPO-OSMOLALITY AND HYPONATREMIA Status: Acute (3) Dyslipidemia Code(s): E78.5 - HYPERLIPIDEMIA, UNSPECIFIED Status: Chronic (4) Tobacco abuse Code(s): Z72.0 - TOBACCO USE Status: Chronic (5) CAD (coronary artery disease) Code(s): I25.10 - ATHSCL HEART DISEASE OF PLATINUM CORONARY ARTERY W/O ANG PCTRS Status: Chronic (6) Aortic stenosis Code(s): I35.0 - NONRHEUMATIC AORTIC (VALVE) STENOSIS Status: Chronic (7) Mitral regurgitation Status: Chronic - Plan PT/OT, out of bed/ambulate Continue furosemide. Pt may need to be transfered to tertiary care center for surgery. Continue Lipitor. Check AM labs.
[2019-08-06] MEDS: Nicotine 14 MG PATCH TD SCH (18:02)
[2019-08-06 19:55] VITALS: BP 115/57; TEMP 98.7
[2019-08-06] MEDS: Atorvastatin Calcium 40 MG TAB PO SCH (21:07)
--- NOTE | 2019-08-07 12:22 | DIS ---
DATE OF ADMISSION: 08/02/2019 DATE OF DISCHARGE: 08/06/2019 PRIMARY CARE PROVIDER: Dr. Rolly Andrew. DISCHARGE DIAGNOSES: 1. Acute on chronic systolic congestive heart failure, [place] Heart Association, class III. 2. Severe aortic stenosis. 3. [id number] mitral regurgitation. 4. Hyponatremia. CONDITION: Condition of the patient on the day of discharge, stable. I assessed Mr. Bailey on the day of discharge. Please refer to my daily hospitalist progress note for further details regarding this [id number] encounter. CONSULTATIONS DURING THIS HOSPITALIZATION: 1. Cardiology, Dr. Cordova. 2. Cardiovascular Surgery, Dr. Mathis. HOSPITAL COURSE: Mr. Bailey is a pleasant 68-year-old gentleman, who was admitted to [facility] on August 02, 2019, for congestive heart failure exacerbation. 2D echocardiogram showed left ventricular ejection fraction of 25% to 30% and [id number] mitral regurgitation. He was seen by Cardiology Service. He underwent cardiac catheterization, which showed severe three-vessel coronary artery disease and severe aortic stenosis. Cardiovascular Surgery was consulted. They referred transfer to a Tertiary Center for coronary artery bypass graft surgery and aortic and mitral valve surgery. He was accepted at [facility] in [place]. He was transferred on the night of August 06, 2019, POSTDISCHARGE FOLLOWUP: To be determined depending on his disposition at the time of discharge from [facility]. Many thanks for allowing me to participate in your patient's care. Please feel free to contact me with any questions or concerns. DISCHARGE DESTINATION: [facility]. TIME SPENT: Total amount of time spent in coordinating this discharge: 33 minutes. Job ID: [id number]
== END 2019-08-06 22:40 | disposition short-term general hospital (02) | DRG 287 ==
LOC: ERS 09:40 → 2NO 14:35
PROVIDERS: ADMIT Internal Medicine; ATTEND Internal Medicine
PROC: 4A023N8 Measurement of Cardiac Sampling and Pressure, Bilateral, Percutaneous Approach (ICD-10-PCS; principal; 2019-08-04)
PROC: B2111ZZ Fluoroscopy of Multiple Coronary Arteries using Low Osmolar Contrast (ICD-10-PCS; 2019-08-04)
PROC: B2161ZZ Fluoroscopy of Right and Left Heart using Low Osmolar Contrast (ICD-10-PCS; 2019-08-04)
DX: I50.23 Acute on chronic systolic (congestive) heart failure (principal); E87.1 Hypo-osmolality and hyponatremia; I08.0 Rheumatic disorders of both mitral and aortic valves; I25.10 Atherosclerotic heart disease of native coronary artery without angina pectoris; E78.5 Hyperlipidemia, unspecified; F17.210 Nicotine dependence, cigarettes, uncomplicated; I25.5 Ischemic cardiomyopathy; I25.2 Old myocardial infarction; Z79.899 Other long term (current) drug therapy; Z79.1 Long term (current) use of non-steroidal anti-inflammatories (NSAID)
CPT/HCPCS: 36415; 71045; 71275; 76942; 80048; 80053; 80061; 82553; 83690; 83880; 84484; 85025; 93005; 93306; 93460; 93567; 93798; 94060; 94727; 94729; 96372; 96374; C1769; J1644; J1650; J1940; Q9967

== ENCOUNTER 2019-10-09 12:24 | Day surgery (SDC) | payer OTHER ==
[2019-10-08 16:50] VITALS: BMI 26.6
[2019-10-09 12:55] LABS: #Basophils 0.1 thou/uL (0.0-0.2); #Eosinphils 0.2 thou/uL (0.0-0.7); #Lymphocytes 2.8 thou/uL (1.20-3.40); #Monocytes 0.8 thou/uL (0.11-0.59); #Neutrophils 6.4 thou/uL (1.40-6.50); %Basophils 1.2 % (0.0-1.0); %Eosinophils 2.1 % (0.0-10.0); %Lymphocytes 27.2 % (21.0-51.0); %Monocytes 7.9 % (0.0-10.0); %Neutrophils 61.5 % (42.0-75.0); Hemoglobin 12.7 g/dL (14.0-18.0); Mean Corpuscular HGB CONC 32.5 g/dL (32.0-36.0); Mean Corpuscular Volume 92.2 fL (78.0-98.0); Mean Platelet Volume 6.9 fL (7.4-10.4); Platelet Count 236 thou/uL (130-400); Red Blood Cell (RBC) Count 4.24 mill/uL (4.70-6.10); White Blood Cell (WBC) Count 10.4 thou/uL (4.8-10.8)
[2019-10-09 13:01] LABS: INR-International Normal Ratio 0.9; PTT 26.9 SEC (22.9-36.1); Prothrombin Time 12.5 SEC (12.0-14.7)
[2019-10-09 13:24] LABS: Anion Gap 12 mmol/L (10-20); BUN (Urea Nitrogen) 11 mg/dL (8.4-25.7); Calc. Creatinine Clearance 81 mL/min (70-130); Calcium 8.8 mg/dL (7.8-10.44); Carbon Dioxide 29 mmol/L (23-31); Chloride 98 mmol/L (98-107); Estimated GFR-MDRD 80; Glucose 89 mg/dL (80-115); Potassium 4.7 mmol/L (3.5-5.1); Sodium 134 mmol/L (136-145)
[2019-10-09] MEDS ORDERED: PROPOFOL 200 MG/20 ML VIAL ONE (14:46)
[2019-10-09] MEDS ORDERED: Ketamine 50 MG/ML (10ML VIAL) ONE (15:02)
[2019-10-09] MEDS ORDERED: Iopamidol 370 76% 50 ML VIAL FS ONE (15:13)
--- NOTE | 2019-10-09 17:15 | RAD ---
ONE VIEW CHEST: 10/09/19 HISTORY: Status post pacemaker placement. COMPARISON: 08/02/19 FINDINGS: There is evidence of sternotomy wires. There is atherosclerosis of the aorta. Normal cardiac silhouet te. Left sided transvenous pacer terminates at the region of the right atrium and right ventricle. No pneumothorax. Lungs and pleural spaces are clear. IMPRESSION: Left sided transvenous defibrillator as above. No pneumothorax. POS: CET
--- NOTE | 2019-10-14 17:44 | EKG ---
Test Reason : PREOP Blood Pressure : / mmHG Vent. Rate : 057 BPM Atrial Rate : 057 BPM P-R Int : 220 ms QRS Dur : 106 ms QT Int : 466 ms P-R-T Axes : 033 -20 120 degrees QTc Int : 453 ms Sinus bradycardia with 1st degree A-V block Inferior infarct (cited on or before 02-AUG-2019) Abnormal ECG When compared with ECG of 02-AUG-2019 10:07, Premature ventricular complexes are no longer Present Premature supraventricular complexes are no longer Present AL interval has increased ST now depressed in Lateral leads Confirmed by DR. Jacinta WADDELL ([id number]) on 10/14/2019 5:44:02 PM Referred By: [facility] Confirmed By:DR. Jacinta WADDELL
== END 2019-10-09 19:13 | disposition home or self-care (01) ==
LOC: CCL 12:24
PROVIDERS: ATTEND Internal Medicine Cardiovascular Disease
PROC: 0JH608Z Insertion of Defibrillator Generator into Chest Subcutaneous Tissue and Fascia, Open Approach (ICD-10-PCS; principal; 2019-10-09)
PROC: 02HK3KZ Insertion of Defibrillator Lead into Right Ventricle, Percutaneous Approach (ICD-10-PCS; principal; 2019-10-09)
DX: I50.23 Acute on chronic systolic (congestive) heart failure (principal); I25.5 Ischemic cardiomyopathy; I35.0 Nonrheumatic aortic (valve) stenosis; F17.200 Nicotine dependence, unspecified, uncomplicated; I48.91 Unspecified atrial fibrillation; Z79.899 Other long term (current) drug therapy; Z95.1 Presence of aortocoronary bypass graft; Z95.4 Presence of other heart-valve replacement; Z79.82 Long term (current) use of aspirin
CPT/HCPCS: 33249; 36005; 71045; 75820; 80048; 85025; 85610; 85730; 93005; 93010; C1721; C1777; C1898; J0690; J2704; J3490; Q9967

== ENCOUNTER 2024-03-13 08:37 | Outpatient (CLI) | payer OTHER | END 2024-03-13 08:38 | disposition home or self-care (01) | LOC: NM 08:37 | PROVIDERS: ATTEND Psychiatry & Neurology Neurology | DX: G20.A1 Parkinson's disease without dyskinesia, without mention of fluctuations (principal); G31.89 Other specified degenerative diseases of nervous system | CPT/HCPCS: 78803; A9584 ==